=== PATIENT | female | born 1960 | race Caucasian/White ===

== ENCOUNTER → 2017-03-12 | Day surgery (SDC) | payer OTHER ==
[~2017-03-12] MED LIST: FEOSOL325 MG PO; LIDOCAINE HCL 2% LOCAL INJ 5 ML SDV VIAL INJ ONE; MIDAZOLAM HCL 2 MG/2 ML VIAL ONE; PROPOFOL IV EMULSION 10 MG/ML 50 ML VIAL ONE; SUCRALFATE1 GM PO
== END | disposition home or self-care (01) ==
LOC: OR 05:37
PROVIDERS: ATTEND Internal Medicine Gastroenterology
DX: K74.69 Other cirrhosis of liver (principal); I85.10 Secondary esophageal varices without bleeding; K29.70 Gastritis, unspecified, without bleeding; E66.9 Obesity, unspecified; N39.0 Urinary tract infection, site not specified; Z01.810 Encounter for preprocedural cardiovascular examination; Z68.35 Body mass index [BMI] 35.0-35.9, adult
CPT/HCPCS: 43244; 93005; J2001; J2250

== ENCOUNTER → 2017-10-07 | Day surgery (SDC) | payer OTHER ==
[2017-09-17 08:41] LABS: EOSINOPHILS # (AUTO) 0.2 (0.0-0.4); EOSINOPHILS % 3.1 % (0.0-6.0); HEMOGLOBIN 13.9 g/dL (12.0-16.0); LYMPHOCYTES # (AUTO) 1.4 (1.0-3.2); LYMPHOCYTES % 29.3 % (18.0-39.1); MEAN CORPUSCULAR HEMOGLOBIN 30.5 pg (28-32); MEAN CORPUSCULAR HGB CONC 33.1 g/dL (31-35); MEAN CORPUSCULAR VOLUME 92.1 fL (81-99); MONOCYTES # (AUTO) 0.4 (0.2-0.8); MONOCYTES % 7.7 % (4.4-11.3); NEUTROPHILS # (AUTO) 2.9 (2.1-6.9); NEUTROPHILS % 59.7 % (38.7-80.0); PLATELET COUNT 75 x10e3/uL (140-360); RED BLOOD COUNT 4.56 x10e6/uL (3.6-5.1); RED CELL DISTRIBUTION WIDTH 15.1 % (11.7-14.4)
[2017-09-17 08:52] LABS: INR 1.11; PROTHROMBIN TIME 13.5 seconds (11.9-14.5)
[2017-09-17 08:53] LABS: PARTIAL THROMBOPLASTIN TIME 30.4 seconds (23.8-35.5)
[2017-09-17 09:03] LABS: ALANINE AMINOTRANSFERASE 101 IU/L (0-55); ALBUMIN 3.1 g/dL (3.5-5.0); ALBUMIN/GLOBULIN RATIO 0.7 (0.8-2.0); ALKALINE PHOSPHATASE 428 IU/L (40-150); ANION GAP 12.1 mmol/L (8-16); BLOOD UREA NITROGEN 11 mg/dL (7-26); BUN/CREATININE RATIO 15 (6-25); CALCIUM 9.1 mg/dL (8.4-10.2); CARBON DIOXIDE 27 mmol/L (22-29); CHLORIDE 105 mmol/L (98-107); CREATININE, SERUM 0.71 mg/dL (0.57-1.11); EST GLOMERULAR FILTRATION RATE > 60 ML/MIN (60-); GLUCOSE 101 mg/dL (74-118); POTASSIUM 4.1 mmol/L (3.5-5.1); SODIUM 140 mmol/L (136-145)
[~2017-10-07] MED LIST changes: -LIDOCAINE HCL 2% LOCAL INJ 5 ML SDV VIAL INJ ONE; -MIDAZOLAM HCL 2 MG/2 ML VIAL ONE; +PROPOFOL IV EMULSION 10 MG/ML 20 ML VIAL ONE; -PROPOFOL IV EMULSION 10 MG/ML 50 ML VIAL ONE
== END | disposition home or self-care (01) ==
LOC: OR 05:52
PROVIDERS: ATTEND Internal Medicine Gastroenterology
DX: K74.69 Other cirrhosis of liver (principal); I85.10 Secondary esophageal varices without bleeding; K29.70 Gastritis, unspecified, without bleeding; K76.6 Portal hypertension; Z71.3 Dietary counseling and surveillance; D69.6 Thrombocytopenia, unspecified; Z88.0 Allergy status to penicillin; Z01.810 Encounter for preprocedural cardiovascular examination; Z01.812 Encounter for preprocedural laboratory examination; Z68.39 Body mass index [BMI] 39.0-39.9, adult
CPT/HCPCS: 36415; 43255; 80053; 85025; 85610; 85730; 93005

== ENCOUNTER 2018-06-02 12:10 | Emergency (ER) | payer SELFPAY ==
[~2018-06-02] VITALS: Ht 160 cm; Wt 90.7 kg
[~2018-06-02 12:10] MED LIST changes: -PROPOFOL IV EMULSION 10 MG/ML 20 ML VIAL ONE
--- NOTE | 2018-06-02 13:01 | NUR ---
rec'd pt in rm 4 with c/o left leg pain. placed on the monitor and in a gown
--- NOTE | 2018-06-02 13:35 | NUR ---
2 attempts at iv access unsuccessful
[2018-06-02 14:13] LABS: BASOPHILS % 0.3 % (0.0-1.0); EOSINOPHILS # (AUTO) 0.1 (0.0-0.4); EOSINOPHILS % 4.6 % (0.0-6.0); HEMATOCRIT 40.9 % (34.2-44.1); HEMOGLOBIN 13.5 g/dL (12.0-16.0); LYMPHOCYTES % 33.9 % (18.0-39.1); MEAN CORPUSCULAR HEMOGLOBIN 30.6 pg (28-32); MEAN CORPUSCULAR VOLUME 92.7 fL (81-99); MONOCYTES # (AUTO) 0.3 (0.2-0.8); MONOCYTES % 9.4 % (4.4-11.3); NEUTROPHILS # (AUTO) 1.6 (2.1-6.9); NEUTROPHILS % 51.5 % (38.7-80.0); PLATELET COUNT 71 x10e3/uL (140-360); RED BLOOD COUNT 4.41 x10e6/uL (3.6-5.1); RED CELL DISTRIBUTION WIDTH 14.7 % (11.7-14.4)
[2018-06-02 14:14] LABS: INR 0.97; PROTHROMBIN TIME 13.4 seconds (11.9-14.5)
[2018-06-02 14:15] LABS: PARTIAL THROMBOPLASTIN TIME 32.6 seconds (23.8-35.5)
[2018-06-02 14:21] LABS: ANION GAP 10.4 mmol/L (8-16); BLOOD UREA NITROGEN 14 mg/dL (7-26); BUN/CREATININE RATIO 18 (6-25); CALCIUM 8.3 mg/dL (8.4-10.2); CARBON DIOXIDE 26 mmol/L (22-29); CHLORIDE 105 mmol/L (98-107); CREATININE, SERUM 0.77 mg/dL (0.57-1.11); EST GLOMERULAR FILTRATION RATE > 60 ML/MIN (60-); GLUCOSE 106 mg/dL (74-118); POTASSIUM 3.4 mmol/L (3.5-5.1); SODIUM 138 mmol/L (136-145)
[2018-06-02] MEDS ORDERED: TYLENOL WITH C1 EACH PO (16:02)
[2018-06-02] MEDS ORDERED: POTASSIUM CHLORIDE 20 MEQ TAB CR PO ONE (16:15)
== END 2018-06-02 17:05 | disposition home or self-care (01) ==
LOC: ER 12:10
DX: M79.662 Pain in left lower leg (principal); S86.112A Strain of other muscle(s) and tendon(s) of posterior muscle group at lower leg level, left leg, initial encounter; R26.2 Difficulty in walking, not elsewhere classified; K76.9 Liver disease, unspecified
CPT/HCPCS: 36415; 80048; 85025; 85610; 85730; 93971; 99284

== ENCOUNTER 2021-05-22 08:10 | Inpatient (IN) | payer OTHER ==
[~2021-05-22] VITALS: Ht 157.5 cm; Wt 101.6 kg
[~2021-05-22 08:10] MED LIST changes: +TYLENOL WITH C1 EACH PO
[2021-05-22 08:52] LABS: BASOPHILS % 0.2 % (0.0-1.0); EOSINOPHILS # (AUTO) 0.3 (0.0-0.4); HEMATOCRIT 42.2 % (34.2-44.1); HEMOGLOBIN 14.1 g/dL (12.0-16.0); LYMPHOCYTES # (AUTO) 1.7 (1.0-3.2); LYMPHOCYTES % 33.8 % (18.0-39.1); MEAN CORPUSCULAR HEMOGLOBIN 31.3 pg (28-32); MEAN CORPUSCULAR HGB CONC 33.4 g/dL (31-35); MEAN CORPUSCULAR VOLUME 93.6 fL (81-99); MONOCYTES # (AUTO) 0.3 (0.2-0.8); MONOCYTES % 5.8 % (4.4-11.3); NEUTROPHILS # (AUTO) 2.7 (2.1-6.9); PLATELET COUNT 79 x10e3/uL (140-360); RED BLOOD COUNT 4.51 x10e6/uL (3.6-5.1); RED CELL DISTRIBUTION WIDTH 15.2 % (11.7-14.4)
[2021-05-22 09:02] LABS: CLARITY,URINE CLOUDY (CLEAR); COLOR,URINE YELLOW (YELLOW); KETONES,URINE NEGATIVE (NEGATIVE); LEUKOCYTE ESTERASE ,URINE NEGATIVE (NEGATIVE); NITRITE,URINE POSITIVE (NEGATIVE); PROTEIN,URINE DIPSTICK >=300 (NEGATIVE); URINE UROBILINOGEN 1 mg/dL (0.2 - 1)
[2021-05-22 09:20] LABS: INR 1.01; PROTHROMBIN TIME 14.2 seconds (11.9-14.5)
[2021-05-22 09:21] LABS: ALBUMIN 1.9 g/dL (3.5-5.0); ALBUMIN/GLOBULIN RATIO 0.5 (0.8-2.0); ANION GAP 9.1 mmol/L (8-16); CALCIUM 8.2 mg/dL (8.4-10.2); CREATININE, SERUM 0.71 mg/dL (0.57-1.11); MAGNESIUM 1.8 MG/DL (1.3-2.1); PARTIAL THROMBOPLASTIN TIME 30.8 seconds (23.8-35.5); POTASSIUM 4.1 mmol/L (3.5-5.1)
[2021-05-22 09:27] LABS: CREATINE KINASE MB 3.4 ng/mL (0-5.0)
[2021-05-22 09:38] LABS: BACTERIA,URINE MODERATE /HPF; EPITHELIAL CELLS,URINE FEW /LPF; RBC,URINE >50 /HPF (0-5); TRANSITIONAL EPI CELLS,URINE RARE
[2021-05-22] MEDS ORDERED: SODIUM CHLORIDE 0.9% 50ML 50 ML ONE (10:05)
[2021-05-22] MEDS ORDERED: IOPAMIDOL 370 MG/ML 200 ML INFUS..BTL INJ ONE (10:05)
[2021-05-22] MEDS ORDERED: SODIUM CHLORIDE 0.9% 1000ML 1,000 ML IV ONE (11:15)
[2021-05-22] MEDS: Aztreonam 1 GM in SODIUM CHLORIDE 0.9% 50ML 50 ML IV SCH ×3 (11:45→23:00)
[2021-05-22 12:19] VITALS: BP 175/57
[2021-05-22] MEDS: METRONIDAZOLE 500MG/NS 100ML 100 ML IV SCH ×2 (13:01→18:00)
[2021-05-22 13:28] VITALS: BP 175/57
[2021-05-22 16:00] VITALS: BP 153/70
[2021-05-22 17:30] LABS: CREATINE KINASE MB 2.9 ng/mL (0-5.0)
[2021-05-22 20:00] VITALS: BP 145/57
[2021-05-22 21:39] VITALS: BP 145/57
[2021-05-23] VITALS (9 sets, daily range): BP systolic 131–149; BP diastolic 54–62
[2021-05-23] MEDS: Aztreonam 1 GM in SODIUM CHLORIDE 0.9% 50ML 50 ML IV SCH ×3 (05:00→22:13)
[2021-05-23 05:01] LABS: BASOPHILS % 0.4 % (0.0-1.0); EOSINOPHILS # (AUTO) 0.3 (0.0-0.4); EOSINOPHILS % 6.3 % (0.0-6.0); HEMATOCRIT 40.4 % (34.2-44.1); LYMPHOCYTES # (AUTO) 1.5 (1.0-3.2); MEAN CORPUSCULAR HEMOGLOBIN 31.8 pg (28-32); MEAN CORPUSCULAR HGB CONC 34.7 g/dL (31-35); MEAN CORPUSCULAR VOLUME 91.8 fL (81-99); MONOCYTES # (AUTO) 0.3 (0.2-0.8); MONOCYTES % 6.5 % (4.4-11.3); NEUTROPHILS # (AUTO) 2.5 (2.1-6.9); NEUTROPHILS % 53.6 % (38.7-80.0); PLATELET COUNT 84 x10e3/uL (140-360); RED CELL DISTRIBUTION WIDTH 15.2 % (11.7-14.4)
[2021-05-23] MEDS ORDERED: SODIUM CHLORIDE 0.9% 50ML 50 ML ONE (05:10)
[2021-05-23 05:38] LABS: ALBUMIN 1.7 g/dL (3.5-5.0); ALBUMIN/GLOBULIN RATIO 0.5 (0.8-2.0); ANION GAP 10.1 mmol/L (8-16); CREATININE, SERUM 0.73 mg/dL (0.57-1.11); POTASSIUM 4.1 mmol/L (3.5-5.1)
[2021-05-23] MEDS: METRONIDAZOLE 500MG/NS 100ML 100 ML IV SCH ×2 (06:00)
[2021-05-23 07:05] LABS: CREATINE KINASE MB 2.9 ng/mL (0-5.0)
[2021-05-23] MEDS: FUROSEMIDE INJ 10 MG/ML 4 ML VIAL IV SCH (10:23)
[2021-05-23] MEDS: SPIRONOLACTONE 25 MG TAB PO SCH ×2 (10:24→16:33)
[2021-05-23] MEDS: PROPRANOLOL HCL 10 MG TAB PO SCH ×2 (10:24→16:33)
[2021-05-23] MEDS: OCTREOTIDE ACETATE 500 MCG in SODIUM CHLORIDE 0.9% 250ML 249 ML IV SCH (11:00)
[2021-05-23] MEDS: METRONIDAZOLE 500 MG TAB PO SCH ×2 (14:20→22:13)
[2021-05-24] VITALS (8 sets, daily range): BP systolic 117–158; BP diastolic 52–76
[2021-05-24] MEDS: Aztreonam 1 GM in SODIUM CHLORIDE 0.9% 50ML 50 ML IV SCH ×3 (05:28→22:21)
[2021-05-24 06:16] LABS: BASOPHILS % 0.5 % (0.0-1.0); EOSINOPHILS # (AUTO) 0.2 (0.0-0.4); EOSINOPHILS % 5.6 % (0.0-6.0); HEMATOCRIT 42.9 % (34.2-44.1); HEMOGLOBIN 14.3 g/dL (12.0-16.0); LYMPHOCYTES # (AUTO) 1.3 (1.0-3.2); MEAN CORPUSCULAR HEMOGLOBIN 31.3 pg (28-32); MEAN CORPUSCULAR HGB CONC 33.3 g/dL (31-35); MEAN CORPUSCULAR VOLUME 93.9 fL (81-99); MONOCYTES # (AUTO) 0.3 (0.2-0.8); MONOCYTES % 7.6 % (4.4-11.3); NEUTROPHILS # (AUTO) 2.1 (2.1-6.9); PLATELET COUNT 71 x10e3/uL (140-360); RED BLOOD COUNT 4.57 x10e6/uL (3.6-5.1); RED CELL DISTRIBUTION WIDTH 15.3 % (11.7-14.4)
[2021-05-24] MEDS: OCTREOTIDE ACETATE 500 MCG in SODIUM CHLORIDE 0.9% 250ML 249 ML IV SCH (06:21)
[2021-05-24] MEDS: METRONIDAZOLE 500 MG TAB PO SCH ×3 (06:21→22:21)
[2021-05-24 06:26] LABS: ALBUMIN 1.7 g/dL (3.5-5.0); ALBUMIN/GLOBULIN RATIO 0.5 (0.8-2.0); ANION GAP 11.1 mmol/L (8-16); CALCIUM 8.1 mg/dL (8.4-10.2); CREATININE, SERUM 0.87 mg/dL (0.57-1.11); POTASSIUM 4.1 mmol/L (3.5-5.1)
[2021-05-24] MEDS: FUROSEMIDE INJ 10 MG/ML 4 ML VIAL IV SCH (09:23)
[2021-05-24] MEDS: SPIRONOLACTONE 25 MG TAB PO SCH ×2 (09:23→16:50)
[2021-05-24] MEDS: PROPRANOLOL HCL 10 MG TAB PO SCH ×2 (09:23→16:50)
[2021-05-24] MEDS: ONDANSETRON HCL INJ 2MG/ML 2ML 2 MG/ML VIAL IV PRN (22:21)
[2021-05-25] VITALS (7 sets, daily range): BP systolic 129–160; BP diastolic 52–67
[2021-05-25] MEDS: OCTREOTIDE ACETATE 500 MCG in SODIUM CHLORIDE 0.9% 250ML 249 ML IV SCH (02:17)
[2021-05-25] MEDS: ONDANSETRON HCL INJ 2MG/ML 2ML 2 MG/ML VIAL IV PRN ×4 (02:25→22:40)
[2021-05-25] MEDS: Morphine 4mg Syringe 4 MG/ML INJ IV PRN ×3 (02:30→18:43)
[2021-05-25] MEDS: METRONIDAZOLE 500 MG TAB PO SCH ×3 (05:59→22:17)
[2021-05-25] MEDS: Aztreonam 1 GM in SODIUM CHLORIDE 0.9% 50ML 50 ML IV SCH ×3 (05:59→22:17)
[2021-05-25] MEDS: PROPRANOLOL HCL 10 MG TAB PO SCH ×2 (09:00→16:28)
[2021-05-25] MEDS: SPIRONOLACTONE 25 MG TAB PO SCH ×2 (09:35→16:28)
[2021-05-25] MEDS: FUROSEMIDE INJ 10 MG/ML 4 ML VIAL IV SCH (09:35)
[2021-05-26] VITALS (7 sets, daily range): BP systolic 123–159; BP diastolic 50–72
[2021-05-26] MEDS: OCTREOTIDE ACETATE 500 MCG in SODIUM CHLORIDE 0.9% 250ML 249 ML IV SCH ×2 (05:47→18:00)
[2021-05-26] MEDS: Aztreonam 1 GM in SODIUM CHLORIDE 0.9% 50ML 50 ML IV SCH ×3 (05:47→21:15)
[2021-05-26] MEDS: METRONIDAZOLE 500 MG TAB PO SCH ×3 (05:53→21:25)
[2021-05-26] MEDS: ONDANSETRON HCL INJ 2MG/ML 2ML 2 MG/ML VIAL IV PRN (05:53)
[2021-05-26] MEDS ORDERED: BUPIVACAINE HCL 0.5% INJ 30 ML VIAL INJ ONE (07:34)
[2021-05-26] MEDS ORDERED: LEVOFLOXACIN 500MG/D5W 100ML 100 ML IV ONE (08:05)
[2021-05-26] MEDS ORDERED: TRAMADOL HCL 50 MG TAB PO PRN (08:30)
[2021-05-26] MEDS ORDERED: ONDANSETRON HCL INJ 2MG/ML 2ML 2 MG/ML VIAL IV PRN (08:30)
[2021-05-26] MEDS ORDERED: Morphine 4mg Syringe 4 MG/ML INJ IV PRN (08:30)
[2021-05-26] MEDS: PROPRANOLOL HCL 10 MG TAB PO SCH ×2 (09:00→17:00)
[2021-05-26] MEDS: FUROSEMIDE INJ 10 MG/ML 4 ML VIAL IV SCH (09:00)
[2021-05-26] MEDS: SPIRONOLACTONE 25 MG TAB PO SCH ×2 (09:00→17:00)
[2021-05-26] MEDS: DEXTROSE 5%/0.45% SOD CHL 1,000 ML IV SCH ×2 (11:23→22:35)
[2021-05-26] MEDS ORDERED: SEVOFLURANE INHAL SOLN 250 ML PEN BTL ONE (12:57)
[2021-05-26] MEDS ORDERED: PROPOFOL IV EMULSION 10 MG/ML 20 ML VIAL ONE (12:57)
[2021-05-26] MEDS ORDERED: ONDANSETRON HCL INJ 2MG/ML 2ML 2 MG/ML VIAL ONE (12:57)
[2021-05-26] MEDS ORDERED: EPHEDRINE SULFATE INJ 50 MG/ML VIAL ONE (12:57)
[2021-05-26] MEDS ORDERED: KETOROLAC TROMETHAMINE 30 MG/ML VIAL ONE (12:57)
[2021-05-26] MEDS ORDERED: SUCCINYLCHOLINE CHLORIDE 20 MG/ML 10ML VIAL ONE (12:57)
[2021-05-26] MEDS ORDERED: GLYCOPYRROLATE INJ 0.2 MG/ML VIAL ONE (12:57)
[2021-05-26] MEDS ORDERED: ROCURONIUM BROMIDE 10 MG/ML 5ML VIAL IV ONE (12:57)
[2021-05-26] MEDS ORDERED: DEXAMETHASONE SOD PHOS INJ 4 MG/ML SDV ONE (12:57)
[2021-05-26] MEDS ORDERED: POVIDONE IODINE 0.05% 0.05 % ML PO ONE (12:57)
[2021-05-26] MEDS ORDERED: FENTANYL CITRATE/PF 100MCG/2 ML INJ ONE (13:06)
[2021-05-26] MEDS ORDERED: MIDAZOLAM HCL 2 MG/2 ML VIAL ONE (13:06)
[2021-05-27] VITALS (8 sets, daily range): BP systolic 116–180; BP diastolic 53–73
[2021-05-27] MEDS: ONDANSETRON HCL INJ 2MG/ML 2ML 2 MG/ML VIAL IV PRN ×2 (00:22→06:22)
[2021-05-27 05:29] LABS: BASOPHILS % 0.1 % (0.0-1.0); EOSINOPHILS % 0.1 % (0.0-6.0); HEMATOCRIT 42.3 % (34.2-44.1); HEMOGLOBIN 14.4 g/dL (12.0-16.0); LYMPHOCYTES # (AUTO) 1.7 (1.0-3.2); LYMPHOCYTES % 13.3 % (18.0-39.1); MEAN CORPUSCULAR HEMOGLOBIN 31.4 pg (28-32); MEAN CORPUSCULAR VOLUME 92.4 fL (81-99); MONOCYTES # (AUTO) 0.3 (0.2-0.8); MONOCYTES % 2.4 % (4.4-11.3); NEUTROPHILS # (AUTO) 10.5 (2.1-6.9); NEUTROPHILS % 83.6 % (38.7-80.0); PLATELET COUNT 87 x10e3/uL (140-360); RED BLOOD COUNT 4.58 x10e6/uL (3.6-5.1); RED CELL DISTRIBUTION WIDTH 14.8 % (11.7-14.4)
[2021-05-27 05:55] LABS: ALBUMIN 1.7 g/dL (3.5-5.0); ALBUMIN/GLOBULIN RATIO 0.5 (0.8-2.0); ANION GAP 8.1 mmol/L (8-16); CALCIUM 7.3 mg/dL (8.4-10.2); CREATININE, SERUM 1.54 mg/dL (0.57-1.11); POTASSIUM 4.1 mmol/L (3.5-5.1)
[2021-05-27] MEDS: Aztreonam 1 GM in SODIUM CHLORIDE 0.9% 50ML 50 ML IV SCH ×3 (06:18→21:40)
[2021-05-27] MEDS: METRONIDAZOLE 500 MG TAB PO SCH ×3 (06:18→21:40)
[2021-05-27] MEDS: FUROSEMIDE INJ 10 MG/ML 4 ML VIAL IV SCH (09:22)
[2021-05-27] MEDS: SPIRONOLACTONE 25 MG TAB PO SCH ×2 (09:22→17:00)
[2021-05-27] MEDS: PROPRANOLOL HCL 10 MG TAB PO SCH ×2 (09:23→17:01)
[2021-05-28] VITALS: BP 135/57
[2021-05-28 04:00] VITALS: BP 141/60
[2021-05-28 05:29] LABS: BASOPHILS % 0.1 % (0.0-1.0); EOSINOPHILS # (AUTO) 0.1 (0.0-0.4); EOSINOPHILS % 1.1 % (0.0-6.0); HEMATOCRIT 39.9 % (34.2-44.1); HEMOGLOBIN 13.5 g/dL (12.0-16.0); LYMPHOCYTES # (AUTO) 2.5 (1.0-3.2); LYMPHOCYTES % 27.8 % (18.0-39.1); MEAN CORPUSCULAR HEMOGLOBIN 31.5 pg (28-32); MEAN CORPUSCULAR HGB CONC 33.8 g/dL (31-35); MONOCYTES # (AUTO) 0.4 (0.2-0.8); MONOCYTES % 4.8 % (4.4-11.3); NEUTROPHILS % 65.8 % (38.7-80.0); PLATELET COUNT 81 x10e3/uL (140-360); RED BLOOD COUNT 4.29 x10e6/uL (3.6-5.1)
[2021-05-28 05:38] LABS: ALBUMIN 1.6 g/dL (3.5-5.0); ALBUMIN/GLOBULIN RATIO 0.5 (0.8-2.0); ANION GAP 10.7 mmol/L (8-16); CALCIUM 7.3 mg/dL (8.4-10.2); CREATININE, SERUM 1.12 mg/dL (0.57-1.11); POTASSIUM 3.7 mmol/L (3.5-5.1)
[2021-05-28] MEDS ORDERED: SODIUM CHLORIDE 0.9% 250ML 250 ML ONE (05:59)
[2021-05-28] MEDS: Aztreonam 1 GM in SODIUM CHLORIDE 0.9% 50ML 50 ML IV SCH (06:01)
[2021-05-28] MEDS: METRONIDAZOLE 500 MG TAB PO SCH (06:02)
[2021-05-28 07:46] VITALS: BP 146/61
[2021-05-28 08:05] VITALS: BP 146/61
[2021-05-28] MEDS: PROPRANOLOL HCL 10 MG TAB PO SCH (08:18)
[2021-05-28] MEDS: FUROSEMIDE INJ 10 MG/ML 4 ML VIAL IV SCH (08:18)
[2021-05-28] MEDS: SPIRONOLACTONE 25 MG TAB PO SCH (08:18)
[2021-05-28] MEDS ORDERED: CIPRO500 MG PO (09:11)
[2021-05-28] MEDS ORDERED: ALDACTONE25 MG PO (09:12)
[2021-05-28] MEDS ORDERED: PROPRANOLOL HCL10 MG PO (09:12)
[2021-05-28] MEDS ORDERED: LASIX40 MG PO (09:12)
[2021-05-28] MEDS ORDERED: PANTOPRAZOLE SO40 MG PO (09:13)
[2021-05-28] MEDS ORDERED: CELEBREX100 MG PO (09:13)
[2021-05-28] MEDS ORDERED: ONDANSETRON ODT4 MG SL (09:13)
[2021-05-28] MEDS ORDERED: ONDANSETRON HCL 4 MG ORAL DISINTEGRATING TAB PO PRN (09:15)
[2021-05-28] MEDS ORDERED: PANTOPRAZOLE SOD 40 MG TABEC PO SCH (16:30)
[2021-05-29] MEDS ORDERED: FUROSEMIDE 40 MG TAB PO SCH (09:00)
== END 2021-05-28 10:38 | disposition home or self-care (01) | DRG 418 ==
LOC: ER 08:26 → ERHOLD 11:03 → MED/SURG 12:14
PROVIDERS: ADMIT Internal Medicine; ATTEND Internal Medicine
PROC: 0FT44ZZ Resection of Gallbladder, Percutaneous Endoscopic Approach (ICD-10-PCS; principal; 2021-05-26 09:00)
DX: K74.60 Unspecified cirrhosis of liver (principal); K80.12 Calculus of gallbladder with acute and chronic cholecystitis without obstruction; K76.6 Portal hypertension; R18.8 Other ascites; Z68.41 Body mass index [BMI] 40.0-44.9, adult; I85.10 Secondary esophageal varices without bleeding; K76.0 Fatty (change of) liver, not elsewhere classified; K21.9 Gastro-esophageal reflux disease without esophagitis; E66.01 Morbid (severe) obesity due to excess calories; Z88.0 Allergy status to penicillin; Z20.822 Contact with and (suspected) exposure to COVID-19
CPT/HCPCS: 36415; 71045; 74177; 74181; 80053; 81001; 82270; 82550; 82553; 83690; 83735; 83880; 84484; 85025; 85610; 85730; 86677; 86704; 86705; 86706; 86708; 86850; 86870; 86880; 86900; 86905; 87086; 87340; 88304; 93005; 94799; 99001; 99284; J0330; J1100; J1885; J1940; J1956; J2250; J2270; J2353; J2405; J3010; J7030; J7050; Q9967; U0002

== ENCOUNTER 2021-11-26 16:19 | Observation (INO) | payer OTHER ==
[~2021-11-26] VITALS: Ht 152.4 cm; Wt 86.2 kg
[~2021-11-26 16:19] MED LIST changes: +ALDACTONE25 MG PO; +CELEBREX100 MG PO; +CIPRO500 MG PO; +LASIX40 MG PO; +ONDANSETRON ODT4 MG SL; +PANTOPRAZOLE SO40 MG PO; +PROPRANOLOL HCL10 MG PO
[2021-11-26] MEDS ORDERED: IOPAMIDOL 370 MG/ML 100 ML INFUS..BTL INJ ONE (17:15)
[2021-11-26 17:48] LABS: INR 1.18
[2021-11-26 17:49] LABS: PARTIAL THROMBOPLASTIN TIME 31.8 seconds (23.8-35.5)
[2021-11-26] MEDS ORDERED: SODIUM CHLORIDE 0.9% 1000ML 1,000 ML IV SCH (18:45)
[2021-11-26] MEDS ORDERED: FUROSEMIDE INJ 10 MG/ML 4 ML VIAL IV ONE (19:45)
[2021-11-26] MEDS ORDERED: FUROSEMIDE INJ 10 MG/ML 4 ML VIAL ONE (20:05)
[2021-11-26] MEDS ORDERED: SODIUM CHLORIDE 0.9% 1000ML 1,000 ML ONE (20:05)
[2021-11-26] MEDS ORDERED: SODIUM CHLORIDE FLUSH 10 ML SYR INJ PRN (20:15)
[2021-11-26] MEDS ORDERED: ONDANSETRON HCL INJ 2MG/ML 2ML 2 MG/ML VIAL IV PRN (20:15)
[2021-11-26] MEDS ORDERED: ASPIRIN 81 MG CHEW TAB PO ONE (20:15)
[2021-11-26 23:03] VITALS: BP 146/57
[2021-11-26 23:07] VITALS: BP 146/57
[2021-11-26] MEDS ORDERED: ACETAMIN/BUTALBITAL/CAFFEINE TAB PO PRN (23:30)
[2021-11-27 00:09] VITALS: BP 146/57
[2021-11-27 05:06] LABS: BASOPHILS % 0.3 % (0.0-1.0); EOSINOPHILS # (AUTO) 0.3 (0.0-0.4); EOSINOPHILS % 7.6 % (0.0-6.0); HEMATOCRIT 33.8 % (34.2-44.1); HEMOGLOBIN 11.6 g/dL (12.0-16.0); LYMPHOCYTES # (AUTO) 1.1 (1.0-3.2); LYMPHOCYTES % 32.7 % (18.0-39.1); MEAN CORPUSCULAR HEMOGLOBIN 31.4 pg (28-32); MEAN CORPUSCULAR HGB CONC 34.3 g/dL (31-35); MEAN CORPUSCULAR VOLUME 91.4 fL (81-99); MONOCYTES # (AUTO) 0.2 (0.2-0.8); MONOCYTES % 6.4 % (4.4-11.3); NEUTROPHILS # (AUTO) 1.8 (2.1-6.9); PLATELET COUNT 69 x10e3/uL (140-360); RED CELL DISTRIBUTION WIDTH 15.7 % (11.7-14.4)
[2021-11-27 05:14] VITALS: BP 133/71
[2021-11-27 05:21] LABS: ANION GAP 10.5 mmol/L (8-16); CALCIUM 7.6 mg/dL (8.4-10.2); CREATININE, SERUM 0.78 mg/dL (0.57-1.11); POTASSIUM 3.5 mmol/L (3.5-5.1)
[2021-11-27 05:51] LABS: MAGNESIUM 1.8 MG/DL (1.3-2.1)
[2021-11-27 05:59] LABS: CREATINE KINASE MB 4.9 ng/mL (0-5.0)
[2021-11-27 06:12] LABS: THYROID STIMULATING HORMONE 1.783 uIU/mL (0.350-4.940)
[2021-11-27 08:25] VITALS: BP 135/55
[2021-11-27 12:16] LABS: BODY FLUID APPEARANCE CLEAR; BODY FLUID COLOR YELLOW; BODY FLUID TYPE PLEURAL
[2021-11-27 12:37] LABS: RBC,BODY FLUID 1000 cells/uL; WBC,BODY FLUID 340 cells/uL
[2021-11-27 12:54] LABS: LYMPHOCYTES,BODY FLUID 72 %; MONO/MACROPHG,BODY FLUID 24 %; NEUTROPHILS,BODY FLUID 4 %
[2021-11-27 14:32] LABS: GLUCOSE,BODY FLUID 98 mg/dL
[2021-11-27 17:01] VITALS: BP 151/70
[2021-11-27] MEDS ORDERED: PROPRANOLOL HCL10 MG PO (19:25)
[2021-11-27] MEDS ORDERED: LASIX40 MG PO (19:25)
[2021-11-27] MEDS ORDERED: PANTOPRAZOLE SO40 MG PO (19:25)
[2021-11-27] MEDS ORDERED: SPIRONOLACTONE25 MG PO (19:25)
[2021-11-27] MEDS ORDERED: COLACE100 M1 (19:25)
[2021-11-27 20:00] VITALS: BP 147/64
[2021-11-28 01:09] VITALS: BP 127/56
[2021-11-28 05:05] VITALS: BP 162/68
[2021-11-28 05:39] LABS: BASOPHILS % 0.3 % (0.0-1.0); EOSINOPHILS # (AUTO) 0.3 (0.0-0.4); EOSINOPHILS % 9.4 % (0.0-6.0); HEMATOCRIT 34.8 % (34.2-44.1); HEMOGLOBIN 11.8 g/dL (12.0-16.0); LYMPHOCYTES # (AUTO) 1.1 (1.0-3.2); LYMPHOCYTES % 33.2 % (18.0-39.1); MEAN CORPUSCULAR HEMOGLOBIN 31.1 pg (28-32); MEAN CORPUSCULAR HGB CONC 33.9 g/dL (31-35); MEAN CORPUSCULAR VOLUME 91.8 fL (81-99); MONOCYTES # (AUTO) 0.2 (0.2-0.8); MONOCYTES % 6.5 % (4.4-11.3); NEUTROPHILS # (AUTO) 1.7 (2.1-6.9); NEUTROPHILS % 50.6 % (38.7-80.0); PLATELET COUNT 76 x10e3/uL (140-360); RED BLOOD COUNT 3.79 x10e6/uL (3.6-5.1); RED CELL DISTRIBUTION WIDTH 15.6 % (11.7-14.4)
[2021-11-28] MEDS ORDERED: PANTOPRAZOLE SOD 40 MG TABEC PO SCH (06:00)
[2021-11-28 06:04] LABS: ANION GAP 9.7 mmol/L (8-16); CALCIUM 7.2 mg/dL (8.4-10.2); CREATININE, SERUM 0.7 mg/dL (0.57-1.11); POTASSIUM 3.7 mmol/L (3.5-5.1)
[2021-11-28 07:46] VITALS: BP 132/53
[2021-11-28 08:00] VITALS: BP 132/53
[2021-11-28] MEDS ORDERED: SPIRONOLACTONE 25 MG TAB PO SCH (09:00)
[2021-11-28] MEDS ORDERED: ONDANSETRON HCL 4 MG ORAL DISINTEGRATING TAB PO PRN (09:00)
[2021-11-28] MEDS ORDERED: FUROSEMIDE 40 MG TAB PO SCH (09:00)
[2021-11-28 11:27] VITALS: BP 125/86
== END 2021-11-28 14:04 | disposition home or self-care (01) ==
LOC: FSED 16:31 → ERHOLD 20:11 → MED/SURG2 22:33
PROVIDERS: ADMIT Internal Medicine; ATTEND Internal Medicine
DX: K74.60 Unspecified cirrhosis of liver (principal); R09.02 Hypoxemia; J94.8 Other specified pleural conditions; D69.6 Thrombocytopenia, unspecified; D72.819 Decreased white blood cell count, unspecified; K76.6 Portal hypertension; Z90.49 Acquired absence of other specified parts of digestive tract; Z88.0 Allergy status to penicillin; Z20.822 Contact with and (suspected) exposure to COVID-19
CPT/HCPCS: 32555; 36415; 71045; 71260; 74177; 74470; 80048; 80061; 80076; 81003; 82040; 82550; 82553; 82945; 83036; 83615; 83735; 83880; 84100; 84157; 84443; 84484; 85025; 85379; 85610; 85730; 87070; 87205; 88112; 88305; 89051; 93005; 94799; 99284; G0378; J1940; J7030; Q9967